=== PATIENT | male | born 1990 | race Caucasian/White ===

== ENCOUNTER 2021-04-23 10:15 | Outpatient (CLI) | payer OTHER ==
[~2021-04-23] VITALS: Ht 177.8 cm; Wt 210.0 kg
[2021-04-23] MEDS ORDERED: albuterol 2.5 MG/3 ML nebule NEB ONE (11:00)
== END 2021-04-23 23:59 | disposition home or self-care (01) ==
LOC: RT 10:15
PROVIDERS: ATTEND Chiropractor
DX: R06.02 Shortness of breath (principal)
CPT/HCPCS: 71046; 94060; 94760